=== PATIENT | male | born 1950 | race Caucasian/White ===

== ENCOUNTER 2016-12-08 10:38 | Inpatient (IN) ==
[2016-12-08] MEDS ORDERED: LOVENOX SUBQ SCH (13:00)
--- NOTE | 2016-12-08 14:18 | Diag Imaging Result Doc PS360 ---
CHEST-2 VIEWS - 12/08/2016 INDICATION: possible DVT left leg TECHNIQUE: COMPARISON: 09/10/1716 FINDINGS: Stable CABG changes. Stable pacemaker. Stable cardiomegaly. Pulmonary vascularity is grossly normal. No focal infiltrates, pneumothorax, or pleural effusion. Bony structures are grossly intact. IMPRESSION: No acute disease or change from prior. Electronically signed by Alvin Meeks 12/08/2016 2:16 PM
[2016-12-08 14:41] LABS: MANUAL DIFF NEEDED? NO
[2016-12-08 14:46] LABS: BASO% 0.4 % (0.0-0.8); EOS% 1.2 % (0.0-10.0); HEMATOCRIT 40.8 % (42.0-52.0); HEMOGLOBIN 13.1 g/dL (14.0-18.0); LYMPH# 1.48 X1000 (1.2-3.4); LYMPH% 17.4 % (20.5-51.1); MCH 26.3 PG (27-31); MCHC 32.1 g/dL (33-37); MCV 81.8 FL (81-99); MONO# 0.74 X1000 (0.11-0.59); MONO% 8.7 % (1.7-9.3); MPV 9.8 FL (7.4-10.4); NEUT% 72.3 % (42.2-75.2); PLT 281 X1000 (130-400); RBC 4.99 XMIL (4.7-6.1)
[2016-12-08 14:54] LABS: INR 1.04; PROTIME 10.9 Seconds (9.2-11.7); PTT 30.8 Seconds (22.0-36.0)
[2016-12-08 15:01] LABS: AGAP 9; ALBUMIN 3.9 g/dL (3.5-5.0); ALKALINE PHOSPHATASE 107 U/L (32-122); BUN 14 mg/dL (8-22); CALCIUM 8.8 mg/dL (8.8-10.2); CHLORIDE 99 mmol/L (98-107); COSMO 279; GOT 13 U/L (10-34); GPT 9 U/L (10-44); POTASSIUM 4.5 mmol/L (3.5-5.1); SODIUM 138 mmol/L (136-145); TCO2 30 mmol/L (25-35); TOTAL BILIRUBIN 0.41 mg/dL (0.20-1.00); TOTAL PROTEIN 7.3 g/dL (6.3-8.3)
[2016-12-08] MEDS ORDERED: VANCOMYCIN 2.25 GM in NS 500 ML IV ONE (16:00)
[2016-12-08] MEDS: ZOSYN 3.375 GM/NS 3.375 GM/50 ML IVPB IV SCH ×2 (16:05→21:29)
[2016-12-08] MEDS ORDERED: PHENERGAN PO PRN (16:57)
[2016-12-08] MEDS ORDERED: LASIX PO PRN (16:57)
[2016-12-08] MEDS: PATIENT'S OWN MED PO SCH ×3 (18:07→23:19)
[2016-12-08] MEDS: ADVAIR 500/50 DISKUS INH SCH (18:18)
[2016-12-08] MEDS: COREG PO SCH (18:18)
[2016-12-08] MEDS: ROBAXIN PO SCH (21:29)
[2016-12-08] MEDS: GLUCOPHAGE PO SCH (21:29)
[2016-12-08] MEDS: PRAVACHOL PO SCH (21:30)
[2016-12-08] MEDS: XANAX PO SCH (21:35)
[2016-12-08] MEDS ORDERED: NICODERM PATCH TD ONE (23:22)
[2016-12-09] MEDS: ZOSYN 3.375 GM/NS 3.375 GM/50 ML IVPB IV SCH ×4 (00:05→22:26)
--- NOTE | 2016-12-09 01:21 | HISTORY AND PHYSICAL ---
HISTORY OF PRESENT ILLNESS: Mr. Bui is a 66-year-old white gentleman, a known case of coronary artery disease, diabetes, was admitted with severe cellulitis, with possible thrombophlebitis in the left leg. He noticed this morning that the left leg was swollen in the lower half. There was a swelling in the upper part. He decided to come first to med-surg, and then came to our office. He is a known case of diabetes mellitus, hypertension. He has a permanent pacemaker. He had a CABG performed in April last year. He also had a cholecystectomy done on him. MEDICATIONS: Ambien 10 mg at bedtime, vitamin B complex, Spiriva daily, spironolactone 25 mg daily, promethazine, pravastatin, morphine sulfate at bedtime, methocarbamol 750 mg b.i.d., metformin 850 mg b.i.d., furosemide 40 mg b.i.d., fluticasone and salmeterol inhaler twice a day, enalapril 10 mg daily, Valium 5 mg p.m. p.r.n., cilostazol 100 mg daily, carvedilol 6.25 mg daily, aspirin 81 mg daily, amlodipine 10 mg daily, alprazolam 2 mg at bedtime. ALLERGIES: He is not allergic to any medications. SOCIAL HISTORY: He stills smokes about a pack of cigarettes per day. He has cut down from 3 packs. He does not drink. REVIEW OF SYSTEMS: Other than severe pain and swelling in the left leg with redness, is noncontributory. PHYSICAL EXAMINATION: VITAL SIGNS: Temperature 99 degrees, pulse 63 per minute, respiratory rate 18 per minute, blood pressure 143/63. HEENT: Head normocephalic. Pupils PERRLA. Fundus examination normal. ENT examination unremarkable. NECK: Supple. JVP normal. There is no evidence of lymphadenopathy, thyroid enlargement, anemia, cyanosis, or clubbing. EXTREMITIES: There is minimal calf tenderness on the left side, bilateral leg edema. The left leg is much more swollen. Tender in the lower half. In the upper however there is a fluctuating swelling also. Pedal pulses are feeble. BREAST: Reveals gynecomastia. CHEST: Reveals a midline scar from bypass surgery. He also has a pacemaker in the left infraclavicular area. LUNGS: Reveal occasional basal rales bilaterally. PMI in the 5th intercostal space, outside the midclavicular line. HEART: Sounds normal. No murmur, gallop, or rub noted. ABDOMEN: Nondistended. Hernial orifices normal. No guarding or rigidity, free fluid, masses, or organomegaly. Bowel sounds normal. RECTAL: Deferred. CENTRAL NERVOUS SYSTEM: Higher functions normal. Cranial nerves normal. Motor and sensory system examination unremarkable. Deep tendon reflexes normal. Plantars downgoing. Skull and spine examination normal for age. No cerebellar signs or signs of meningeal irritation. Locomotor exam unremarkable. SKIN: Unremarkable. CLINICAL IMPRESSION: Severe cellulitis, with possible thrombophlebitis in the left leg. Plan to get blood cultures and start IV vancomycin, as well as IV Zosyn. After the flow studies, we will decide about the further decision. In the meantime, he will be treated with Lovenox 60 mg twice a day. cc: Eduar Groves MD
[2016-12-09] MEDS: HUMULIN R SUBQ SCH ×5 (03:02→22:26)
[2016-12-09] MEDS: PATIENT'S OWN MED PO SCH ×5 (04:43→22:25)
[2016-12-09] MEDS: LOVENOX SUBQ SCH (06:46)
--- NOTE | 2016-12-09 06:53 | EKG Report ---
Test Performed on : 12/08/2016 4:18:05 PM Test Reason : possible DVT left leg Blood Pressure : / mmHG Vent. Rate : 064 BPM Atrial Rate : 416 BPM P-R Int : 000 ms QRS Dur : 180 ms QT Int : 456 ms P-R-T Axes : 000 -87 092 degrees QTc Int : 470 ms Ventricular-paced rhythm Abnormal ECG When compared with ECG of 19-DEC-2013 17:11, Vent. rate has decreased BY 3 BPM Confirmed by Jesse De MD ([id number]) on 12/09/2016 8:34:57 AM
[2016-12-09] MEDS: ALDACTONE PO SCH (08:39)
[2016-12-09] MEDS: ROBAXIN PO SCH ×2 (08:39→22:26)
[2016-12-09] MEDS: PLETAL PO SCH (08:39)
[2016-12-09] MEDS: VICON-C PO SCH (08:39)
[2016-12-09] MEDS: ASPIRIN PO SCH (08:39)
[2016-12-09] MEDS: GLUCOPHAGE PO SCH ×2 (08:39→22:25)
[2016-12-09] MEDS: NORVASC PO SCH (08:40)
[2016-12-09] MEDS: NICODERM PATCH TD SCH (08:40)
[2016-12-09] MEDS: VASOTEC PO SCH (08:44)
[2016-12-09] MEDS ORDERED: VANCOMYCIN IV PER PHARMACY MISC SCH (09:00)
[2016-12-09] MEDS ORDERED: MORPHINE IV ONE ×2 (10:48→18:43)
--- NOTE | 2016-12-09 12:13 | PROGRESS NOTE ---
DATE: 12/09/2016 Mr. Bui's left leg revealed some induration or the abscess cavity filled with fluid is filled to its capacity at the present time. It definitely is larger. There is cellulitis. We have done the blood cultures, so we might do a pus culture after he gets incision and drainage. I have asked Dr. Anaya to consult on him. He is on IV vancomycin as well as Zosyn. IMPRESSIONS: 1. Diabetes. 2. Sick sinus syndrome. 3. Hypertension. 4. History of congestive heart failure. 5. Patient has an abscess and cellulitis on the left leg. cc: Eduar Groves MD
[2016-12-09] MEDS ORDERED: ROBINUL ONE (14:22)
[2016-12-09] MEDS ORDERED: XYLOCAINE-MPF 2% ONE (14:22)
[2016-12-09] MEDS ORDERED: FENTANYL ONE ×2 (14:26→15:49)
[2016-12-09] MEDS ORDERED: DIPRIVAN 1% ONE (14:27)
[2016-12-09] MEDS ORDERED: HURRICAINE SPRAY (DOSE) ONE (14:39)
[2016-12-09] MEDS ORDERED: ZEMURON ONE (14:40)
[2016-12-09] MEDS ORDERED: QUELICIN (DOSE) ONE (14:40)
--- NOTE | 2016-12-09 14:45 | Extremity Venous Study ---
PROCEDURE NAME: Venous U/S Left Leg - 12/08/2016 TEST: Left lower extremity venous duplex, and color flow imaging study using the [employer] vivid E9 ultrasound System with a 9 L-D transducer. PATIENT PROFILE: A 66-year-old male. TOBACCO DIPPER: Deborah Link RVT. INDICATIONS: 1. Erythema, redness, ICD 10 L53.9. 2. Edema, unspecified, ICD 10 R60.9. REASON FOR STUDY: The patient has developed pain, edema and redness involving the left lower extremity. FINDINGS: The left common femoral vein and its branches, deep and superficial femoral veins were satisfactorily imaged. They had flow through them and were compressible. Left popliteal vein and the deep veins below the left knee were all compressible and had flow through them. The superficial veins of the left lower extremity were compressible throughout their length. There was a 4 cm fluid-filled lesion in the left proximal calf below the skin and subcutaneous tissue with some internal debris which could represent infection or abscess. INTERPRETATION: No evidence of acute deep or superficial venous thrombosis of the left lower extremity. There is 4-cm fluid and debris-filled lesion left proximal calf. cc: MD Eduar Marcus MD
[2016-12-09] MEDS ORDERED: VERSED ONE ×3 (15:40→15:46)
[2016-12-09] MEDS ORDERED: SENSORCAINE 0.25%/EPI 1:200,000 ONE (15:49)
[2016-12-09] MEDS ORDERED: XYLOCAINE 1% ONE (15:49)
[2016-12-09] MEDS ORDERED: VANCOMYCIN 2 GM in NS 500 ML IV SCH (16:00)
--- NOTE | 2016-12-09 17:42 | CONSULTATION ---
DATE OF CONSULTATION: 12/09/2016 HISTORY OF PRESENT ILLNESS: This is a 66-year-old male, history of coronary disease with bypass back in April with left greater saphenous vein harvest, diabetes, who presents with pain, erythema in his left leg. He notes over the last 24-48 hours worsening of this, prompting his admission to the hospital. MEDICAL HISTORY: 1. Diabetes. 2. Hypertension. 3. Tobacco abuse. 4. Pacemaker. 5. Coronary bypass in April by Dr. Rice with left greater saphenous vein harvested. SURGICAL HISTORY: Cholecystectomy. MEDICATIONS: Takes an aspirin as far as anticoagulants. A lot of other medicine for blood pressure, diabetes. SOCIAL HISTORY: Smokes a pack a day. Down from 3 packs a day. No alcohol. He is a , served several years in [place] and was 21 years in the [employer]. REVIEW OF SYSTEMS: Ten point negative except for what is mentioned in HPI. PHYSICAL EXAMINATION: Vital Signs: Temperature is 97.9, pulse 56, blood pressure 140/67, oxygen saturation 96% on room air. General: He is alert, in no acute distress. HEENT: There is no scleral icterus. Cardiovascular: Normal rate, regular rhythm. There is a well-healed median sternotomy incision. Pulmonary: No increased work of breathing on room air. Abdomen: Protuberant, but soft, nontender, nondistended. Integument: Warm, dry. On the medial aspect of his left calf, there is some fluctuance just below his previous greater saphenous vein harvest site incision. His feet are well perfused but pulses are mildly diminished bilaterally. There is no lower extremity edema, but there is some focal erythema or fluctuance at the medial aspect of his calf. Musculoskeletal: Otherwise normal muscle tone throughout. LABS: White count is 8. Hematocrit 40, platelets 281. INR is 1.04, creatinine is 1.1. Glucose 143, albumin is 3.9. The patient reports that he had a lower extremity ultrasound that showed no DVT. ASSESSMENT AND PLAN: A 66-year-old male with multiple medical problems, who presents with a left medial calf abscess. This is in the location of his previous greater saphenous vein harvest site. I have had a long discussion with patient and recommended incision and drainage of this in the operating room today, as it feels quite deep and is very tender. I think analgesia would be difficult at the bedside. He consents for this. He ate breakfast unfortunately, so we will plan on doing it this afternoon after 6 hours being n.p.o. He is on broad-spectrum antibiotics. Will work on his pain control and will make further wound care recommendations pending findings at the time surgery. cc: MD Eduar Howe MD
[2016-12-09] MEDS: COREG PO SCH (17:56)
[2016-12-09] MEDS: VANCOMYCIN 2.25 GM in NS 500 ML IV SCH (17:56)
[2016-12-09] MEDS: ADVAIR 500/50 DISKUS INH SCH (20:01)
[2016-12-09] MEDS: DILAUDID IV PRN (20:09)
[2016-12-09] MEDS: PRAVACHOL PO SCH (22:25)
[2016-12-09] MEDS: AMBIEN PO PRN (22:25)
[2016-12-09] MEDS: VALIUM PO PRN (22:26)
[2016-12-09] MEDS: XANAX PO SCH (22:33)
[2016-12-10] MEDS: PATIENT'S OWN MED PO SCH ×5 (04:23→23:08)
[2016-12-10] MEDS: ZOSYN 3.375 GM/NS 3.375 GM/50 ML IVPB IV SCH ×4 (04:23→23:07)
[2016-12-10] MEDS: LOVENOX SUBQ SCH (06:31)
[2016-12-10] MEDS: HUMULIN R SUBQ SCH ×4 (06:32→21:17)
--- NOTE | 2016-12-10 06:35 | OPERATIVE NOTE ---
PROCEDURE DATE: 12/09/2016 PREOPERATIVE DIAGNOSIS: Left medial calf abscess. POSTOPERATIVE DIAGNOSIS: Left medial calf abscess. PROCEDURE PERFORMED: Incision and debridement of left medial calf abscess. COMPLICATIONS: None. ANESTHESIA: MAC, with local. ESTIMATED BLOOD LOSS: 5 mL. SPECIMENS: 1. Abscess fluid for culture. 2. Abscess cavity for permanent pathology. INDICATION: This is a 66-year-old male, who 7 months ago had a coronary bypass with left lower extremity greater saphenous vein harvest for conduit. He developed over the last 24 hours, increasing pain, erythema at the incision in his left calf for greater saphenous vein harvest, consistent with an abscess. OPERATIVE FINDINGS: There was a large cavity down to the level of muscle and fascia, with what appeared to be serous fluid, with some purulence associated with it. There was also an epithelial- type lining of this cavity. I suspect this is an infected seroma from the previous greater saphenous vein harvest site. No necrotic material noted. OPERATIVE NOTE: Risks, benefits, and alternatives discussed with the patient. He consented to the procedure. He was seen preoperatively, and the surgery to be performed was confirmed. Surgical site was marked. He was taken to the operating room, placed in supine position. IV anesthesia was administered without complication. Left lower extremity was prepped with Betadine solution, draped in usual fashion. Scheduled antibiotics were confirmed after time-out was performed. The leg was draped. We made an incision longitudinally down the leg of the area of greatest fluctuance, after infiltration with local anesthetic. A large amount of fluid was expressed this was suctioned until clear. Cultures were obtained. We disrupted all loculations. Overall, a relatively simple cavity, but it was quite large, extending from the posterior calf anteriorly. There were no areas of exposed bone, but this was down to the level of muscle and fascia. We confirmed hemostasis, and after fully evacuating the fluid and taking cultures, there was also expressed a sac- like material that was excised from this, likely the lining of a chronic seroma, but this was sent for permanent pathology. We then packed the wound with Kerlix gauze dry, his wound was quite moist to begin with, and wrapped with a clean Kerlix and a loose Higinio. Tolerated the procedure well. No identified complications. Counts correct x2. He has awakened and transferred to recovery. No family was available. cc: MD Eduar Howe MD [facility]
[2016-12-10] MEDS: SPIRIVA INH SCH ×2 (07:57)
[2016-12-10] MEDS: GLUCOPHAGE PO SCH ×2 (08:43→21:31)
[2016-12-10] MEDS: NORVASC PO SCH (08:43)
[2016-12-10] MEDS: ROBAXIN PO SCH ×2 (08:43→21:30)
[2016-12-10] MEDS: PLETAL PO SCH (08:43)
[2016-12-10] MEDS: VICON-C PO SCH (08:43)
[2016-12-10] MEDS: ASPIRIN PO SCH (08:43)
[2016-12-10] MEDS: ALDACTONE PO SCH (08:43)
[2016-12-10] MEDS: VASOTEC PO SCH (08:43)
[2016-12-10] MEDS: NICODERM PATCH TD SCH (08:43)
[2016-12-10] MEDS: DILAUDID IV PRN ×2 (15:16→22:03)
--- NOTE | 2016-12-10 15:35 | PROGRESS NOTE ---
DATE: 12/10/2016 SUBJECTIVE: Feels well. Decreased pain in his leg. OBJECTIVE: No fevers or tachycardia overnight. Generally he is alert. His left lower leg with improved erythema. Incision is clean and no purulence, and healthy tissue in the bed. Wound cultures have had no growth to date. No new labs this morning. ASSESSMENT AND PLAN: A 66-year-old male with multiple medical issues who appears to have an infected seroma at the site of a greater saphenous vein harvest site in the left lower leg. He also is status post incision and drainage. We will continue wet-to-dry dressings b.i.d., I have talked to the nurse about this. He is on antibiotics. If his leg looks okay tomorrow we can transition to oral antibiotics and discharge home. He will need home health for wet-to-dry dressings at home. But in the meantime, continue out of bed ambulating and local wound care. cc: MD Eduar Howe MD
--- NOTE | 2016-12-10 16:01 | PROGRESS NOTE ---
DATE: 12/10/2016 Mr. Bui's cultures are negative. He had an incision and drainage of the abscess yesterday by Dr. Anaya. His physical exam is unchanged. We will continue with the current management with antibiotics. -9 cc: Eduar Groves MD
[2016-12-10] MEDS: ADVAIR 500/50 DISKUS INH SCH (17:08)
[2016-12-10] MEDS: COREG PO SCH (17:08)
[2016-12-10] MEDS: VANCOMYCIN 2.25 GM in NS 500 ML IV SCH (17:55)
[2016-12-10] MEDS: PRAVACHOL PO SCH (21:30)
[2016-12-10] MEDS: XANAX PO SCH (21:30)
[2016-12-10] MEDS: VALIUM PO PRN (21:34)
[2016-12-10] MEDS: AMBIEN PO PRN (21:34)
[2016-12-11] MEDS: PATIENT'S OWN MED PO SCH ×2 (05:16→10:59)
[2016-12-11] MEDS: ZOSYN 3.375 GM/NS 3.375 GM/50 ML IVPB IV SCH (05:17)
[2016-12-11] MEDS: LOVENOX SUBQ SCH (05:22)
[2016-12-11] MEDS: HUMULIN R SUBQ SCH ×2 (06:23→11:57)
[2016-12-11 07:55] VITALS: BP 116/62
[2016-12-11] MEDS: SPIRIVA INH SCH (08:18)
[2016-12-11] MEDS: ASPIRIN PO SCH (08:44)
[2016-12-11] MEDS: PLETAL PO SCH (08:44)
[2016-12-11] MEDS: ROBAXIN PO SCH (08:44)
[2016-12-11] MEDS: NICODERM PATCH TD SCH (08:44)
[2016-12-11] MEDS: ALDACTONE PO SCH (08:44)
[2016-12-11] MEDS: VICON-C PO SCH (08:44)
[2016-12-11] MEDS: NORVASC PO SCH (08:44)
[2016-12-11] MEDS: VASOTEC PO SCH (08:44)
[2016-12-11] MEDS: GLUCOPHAGE PO SCH (08:44)
--- NOTE | 2016-12-11 11:28 | PROGRESS NOTE ---
DATE: 12/11/2016 SUBJECTIVE: Feels much better. No pain, no fevers, in his leg. He is anxious to go home. PHYSICAL EXAM: Temperature is 97.6 degrees, no fevers overnight. Pulse is 65. Blood pressure 116/62, O2 saturation 93% on room air.General: He is alert, in no acute distress. Left lower extremities well perfused. There is a clean dressing in place with some minimal serosanguineous drainage on the underlying gauze but no cellulitis adjacent to the wound or extending up the leg. Dressing changes are going well. He is tolerating well. Blood glucose 110. Otherwise no new labs. ASSESSMENT AND PLAN: A 66-year-old male with what appears to be an infected seroma of his left lower extremity after saphenous vein harvest. He has coag-negative Staph growing out of it on the final results of his culture. Suspected most likely the case. He has improved rapidly after I and D and with IV antibiotics. I think it would be safe to transition him to oral antibiotics at this point. I will talk to Dr. Olivera about that and he can see me back early next week for wound check. He will continue wet-to-dry dressings twice daily. His elmhftgf-vi-saf is a nurse and is more than capable of taking care of him. He is a very knowledgeable and compliant patient. If he develops worsening fevers, pain or erythema he will call and we will re-evaluate sooner. I would recommend at least a week's worth of oral antibiotics starting from today. cc: MD Eduar Howe MD
--- NOTE | 2016-12-11 14:15 | PROGRESS NOTE ---
DATE: 12/11/2016 Mr. Bui's culture from the abscess is coag-negative Staph aureus. He is going to need some home health issues and we will discharge him today. I will see him in the office in about 4 days, and I will give him a prescription of Levaquin for 7 days. -8 cc: Eduar Groves MD
--- NOTE | 2016-12-12 10:00 | DISCHARGE SUMMARY ---
ADMISSION DATE: 12/08/2016 DISCHARGE DATE: 12/11/2016 HISTORY OF PRESENT ILLNESS: Mr. Bui, who is a 66-year-old white gentleman, was admitted with severe cellulitis on the left leg. There is a question about thrombophlebitis. Obtained laboratory data In the hospital. Chest x-ray did not reveal any acute disease. EKG revealed ventricular paced rhythm. Pathological specimen revealed extensive ulceration, necrosis, acute on chronic inflammation and edema. Extremity venous flow studies revealed no evidence of acute deep vein thrombosis. There was a 4 cm fluid and debris-filled lesion on the proximal calf. LABORATORY DATA: The lab data revealed CBC was unremarkable, except for mild anemia, a 13.1 hemoglobin. White count was normal. INR was 1.04. Chemistry was unremarkable. BUN was 14, creatinine 1.1. Blood sugar was around 250. COURSE IN THE HOSPITAL: He was given injection vancomycin and treated with Zosyn. Surgical consult was made with Dr. Anaya, who will do the incision and drainage. The patient will be discharged today with a prescription of Levaquin 750 mg daily. FINAL DIAGNOSIS: Abscess of left calf and cellulitis. cc: Eduar Groves MD
== END 2016-12-11 13:11 | disposition home health service (06) ==
LOC: DIRADM 10:38 → 3N 12:01
PROVIDERS: ADMIT Internal Medicine; ATTEND Internal Medicine